=== PATIENT | male | born 1975 | race Two or more races ===

== ENCOUNTER 2025-07-13 08:24 | Inpatient (IN) | payer OTHER ==
[~2025-07-13] VITALS: Ht 182.9 cm; Wt 111.1 kg
[2025-07-13 08:06] LABS: BASO % 0.7 % (0.1-1.2); EOS # 0.41 (0.04-0.54); EOS % 6.9 % (0.7-7.0); LYMPH # 2.29 (1.18-3.74); LYMPH % 38.8 % (19.3-53.1); MEAN PLATELET VOLUME 10.80 fl (9.4-12.4); MONO # 0.48 (0.24-0.82); MONO % 8.1 % (4.7-12.5); NEUT # 2.66 (1.56-6.13); NEUT % 45.2 % (34.0-71.1); RED CELL DISTRIBUTION WIDTH 13.8 % (11.6-14.4)
[2025-07-13 08:07] LABS: URINE APPEARANCE Clear; URINE BILIRRUBIN Negative (NEGATIVE); URINE BLOOD Small; URINE COLOR Yellow; URINE GLUCOSE Negative (NEGATIVE); URINE KETONE Negative (NEGATIVE); URINE LEUKOCYTE Negative; URINE NITRATE Negative; URINE PROTEIN Negative (NEGATIVE); URINE UROBILINOGEN 0.2 E.U./dl
[2025-07-13 08:13] LABS: URINE BACTERIA 11.4 uL (0.0-1933); URINE EPITHELIAL CELLS 1.8 uL (0.0-38.8); URINE RBC 6.7 uL (0.0-20.8); URINE WBC 2.7 uL (0.0-23.2)
[2025-07-13 08:22] VITALS: BP 143/85
[2025-07-13 08:28] LABS: URINE CAST 0.00 uL (0.0-1.40)
[2025-07-13 08:35] LABS: INR 0.97
[2025-07-13 09:04] LABS: ALT/SGPT 46.0 U/L (12-78); AST/SGOT 21.0 U/L (15-37); BILIRUBIN TOTAL 0.81 mg/dL (0.3-1.2); BUN CREA RATIO 11.0 (7.0-25.0); CREATININE SERUM 1.26 mg/dL (0.70-1.30); GFR 60.1; GLOBULINA 2.9 G/DL (2.4-3.5); GLUCOSE FASTING 95.0 mg/dL (65-100); OSMOLALITY SERUM 291.0 MOSM/KG (275-295)
[2025-07-13] MEDS ORDERED: ZESTRIL10 M1 PO (11:38)
[2025-07-16] MEDS ORDERED: BUPIVACAINE HCL/MPF 0.5% 30ML VIAL ONE (07:10)
[2025-07-16] MEDS ORDERED: LIDOCAINE HCL 1%/EPINEPHRINE 20ML VIAL IJ ONE (07:11)
[2025-07-16] MEDS ORDERED: METRONIDAZOLE/SODIUM CHLORIDE 500 MG/100 ML PIGGYBACK IV ONE ×2 (07:11→07:27)
[2025-07-16] MEDS ORDERED: CEFTRIAXONE SODIUM 2,000 MG VIAL ONE ×2 (07:11→07:26)
[2025-07-16] MEDS ORDERED: SUGAMMADEX SODIUM 200 MG/2 ML VIAL IV ONE (11:47)
[2025-07-16] MEDS ORDERED: RINGERS SOLUTION,LACTATED 1,000 ML IV SCH (12:15)
[2025-07-16] MEDS ORDERED: MORPHINE SULFATE 4 MG/ML VIAL IV PRN (12:15)
[2025-07-16] MEDS ORDERED: ONDANSETRON HCL 2 MG/ML VIAL IV PRN (12:15)
[2025-07-16] MEDS ORDERED: ACETAMINOPHEN 500 MG GEL..CAP PO SCH (12:18)
[2025-07-16] MEDS ORDERED: ENALAPRILAT DIHYDRATE 1.25 MG/ML VIAL IV PRN (12:30)
[2025-07-16] MEDS ORDERED: OxyCODONE HCL 5 MG TABLET (ROXICODONE) PO PRN (12:30)
[2025-07-16] MEDS ORDERED: SIMETHICONE 125 MG CAPSULE PO SCH (13:00)
[2025-07-16] MEDS ORDERED: GABAPENTIN 300 MG CAPSULE PO SCH (13:00)
[2025-07-16 14:20] LABS: BASO % 0.2 % (0.1-1.2); EOS # 0.02 (0.04-0.54); EOS % 0.2 % (0.7-7.0); LYMPH # 0.63 (1.18-3.74); LYMPH % 5.1 % (19.3-53.1); MEAN PLATELET VOLUME 11.10 fl (9.4-12.4); MONO # 0.50 (0.24-0.82); MONO % 4.1 % (4.7-12.5); NEUT # 11.03 (1.56-6.13); NEUT % 90.1 % (34.0-71.1); RED CELL DISTRIBUTION WIDTH 13.9 % (11.6-14.4)
[2025-07-16] MEDS ORDERED: ONDANSETRON HCL 2 MG/ML VIAL ONE (14:54)
[2025-07-16 15:39] LABS: BUN CREA RATIO 11.0 (7.0-25.0); CREATININE SERUM 1.39 mg/dL (0.70-1.30); GFR 53.66; GLUCOSE FASTING 131.0 mg/dL (65-100); OSMOLALITY SERUM 288.0 MOSM/KG (275-295)
[2025-07-16] MEDS ORDERED: ACETAMINOPHEN 500 MG GEL..CAP PO ONE (16:21)
[2025-07-16] MEDS ORDERED: GABAPENTIN 300 MG CAPSULE PO ONE (16:21)
[2025-07-16] MEDS ORDERED: POLYETHYLENE GLYCOL 3350 17 GM BLIST.PACK PO SCH (17:00)
[2025-07-16 17:01] VITALS: BP 145/82; O2SAT 97
[2025-07-17] MEDS ORDERED: MORPHINE SULFATE 4 MG/ML VIAL IV PRN ×3 (02:43→05:45)
[2025-07-17] MEDS ORDERED: 0.9 % SODIUM CHLORIDE 500 ML IV ONE (02:45)
[2025-07-17] MEDS ORDERED: MORPHINE SULFATE 4 MG/ML VIAL IV STA (05:42)
[2025-07-17] MEDS ORDERED: MORPHINE SULFATE 2 MG/ML CARTRIDGE IV STA (05:44)
[2025-07-17 06:46] LABS: BASO % 0.2 % (0.1-1.2); EOS # 0.03 (0.04-0.54); EOS % 0.3 % (0.7-7.0); LYMPH # 1.39 (1.18-3.74); LYMPH % 15.2 % (19.3-53.1); MEAN PLATELET VOLUME 11.70 fl (9.4-12.4); MONO # 0.90 (0.24-0.82); MONO % 9.9 % (4.7-12.5); NEUT # 6.76 (1.56-6.13); NEUT % 74.1 % (34.0-71.1); RED CELL DISTRIBUTION WIDTH 13.6 % (11.6-14.4)
[2025-07-17 07:31] LABS: BUN CREA RATIO 7.0 (7.0-25.0); CREATININE SERUM 1.13 mg/dL (0.70-1.30); GFR 68.14; GLUCOSE FASTING 98.0 mg/dL (65-100); OSMOLALITY SERUM 285.0 MOSM/KG (275-295)
[2025-07-17 08:41] VITALS: BP 144/84; O2SAT 100
[2025-07-17] MEDS ORDERED: LISINOPRIL 10 MG TABLET PO SCH (09:00)
[2025-07-17] MEDS ORDERED: LACTOBACILLUS ACIDOPHILUS 1 CAP CAP PO SCH (09:00)
[2025-07-17] MEDS ORDERED: MAGNESIUM CHLORIDE 70 MG TABLET.DR PO SCH (09:00)
[2025-07-17] MEDS ORDERED: PANTOPRAZOLE SODIUM 40 MG/VIAL VIAL IV SCH (09:00)
[2025-07-17 16:00] VITALS: BP 126/79; O2SAT 94
[2025-07-17] MEDS ORDERED: ENOXAPARIN SODIUM 40 MG/0.4 ML SYRINGE SUBCUTANEO SCH (17:00)
[2025-07-18 01:08] VITALS: BP 132/89; O2SAT 100
[2025-07-18 06:18] LABS: BASO % 0.5 % (0.1-1.2); EOS # 0.25 (0.04-0.54); EOS % 3.1 % (0.7-7.0); LYMPH # 1.10 (1.18-3.74); LYMPH % 13.7 % (19.3-53.1); MEAN PLATELET VOLUME 11.60 fl (9.4-12.4); MONO # 0.77 (0.24-0.82); MONO % 9.6 % (4.7-12.5); NEUT # 5.84 (1.56-6.13); NEUT % 72.9 % (34.0-71.1); RED CELL DISTRIBUTION WIDTH 13.4 % (11.6-14.4)
[2025-07-18 06:48] LABS: BUN CREA RATIO 6.0 (7.0-25.0); CREATININE SERUM 0.99 mg/dL (0.70-1.30); GFR 79.38; GLUCOSE FASTING 93.0 mg/dL (65-100); OSMOLALITY SERUM 284.0 MOSM/KG (275-295)
[2025-07-18 08:00] VITALS: BP 137/87; O2SAT 98
[2025-07-18] MEDS ORDERED: MAGNESIUM SULFATE IN WATER 2 GM/50 ML PIGGYBAG IV NR (10:00)
[2025-07-18] MEDS ORDERED: POTASSIUM PHOS,M-BASIC-D-BASIC 15 MM in 0.9 % SODIUM CHLORIDE 250 ML IV ONE (12:00)
[2025-07-18] MEDS ORDERED: NAPH,MB-DB/K PH,MBDB 1 PKT PACKET PO SCH (13:00)
[2025-07-18 14:00] VITALS: BP 142/95; O2SAT 95
[2025-07-18] MEDS ORDERED: POLYETHYLENE GLYCOL 3350 17 GM BLIST.PACK PO SCH (17:00)
[2025-07-19 00:18] VITALS: BP 136/84; O2SAT 96
[2025-07-19] MEDS ORDERED: PIPERACILLIN/TAZOBACTAM SODIUM 3.375 GM in DEXTROSE 5 % IN WATER 100 ML IV SCH (06:00)
[2025-07-19] MEDS ORDERED: VANCOMYCIN HCL 1,000 MG VIAL IV STA (06:10)
[2025-07-19] MEDS ORDERED: VANCOMYCIN HCL 1,000 MG VIAL ONE ×3 (06:13→22:56)
[2025-07-19] MEDS ORDERED: POLYETHYLENE GLYCOL 3350 17 GM BLIST.PACK PO SCH (09:00)
[2025-07-19 10:50] LABS: BASO % 0.5 % (0.1-1.2); EOS # 0.31 (0.04-0.54); EOS % 4.9 % (0.7-7.0); LYMPH # 1.39 (1.18-3.74); LYMPH % 22.2 % (19.3-53.1); MEAN PLATELET VOLUME 11.20 fl (9.4-12.4); MONO # 0.43 (0.24-0.82); MONO % 6.9 % (4.7-12.5); NEUT # 4.10 (1.56-6.13); NEUT % 65.3 % (34.0-71.1); RED CELL DISTRIBUTION WIDTH 13.2 % (11.6-14.4)
[2025-07-19 11:38] LABS: BUN CREA RATIO 6.0 (7.0-25.0); CREATININE SERUM 1.07 mg/dL (0.70-1.30); GFR 72.57; GLUCOSE FASTING 128.0 mg/dL (65-100); OSMOLALITY SERUM 294.0 MOSM/KG (275-295)
[2025-07-19] MEDS ORDERED: VANCOMYCIN HCL 1,000 MG VIAL IV SCH (17:00)
[2025-07-19 18:28] VITALS: BP 120/79; O2SAT 95
[2025-07-20] VITALS: BP 144/86; O2SAT 97
[2025-07-20 06:15] LABS: BASO % 0.7 % (0.1-1.2); EOS # 0.34 (0.04-0.54); EOS % 6.2 % (0.7-7.0); LYMPH # 1.31 (1.18-3.74); LYMPH % 23.9 % (19.3-53.1); MEAN PLATELET VOLUME 11.50 fl (9.4-12.4); MONO # 0.67 (0.24-0.82); NEUT # 3.10 (1.56-6.13); NEUT % 56.8 % (34.0-71.1); RED CELL DISTRIBUTION WIDTH 12.9 % (11.6-14.4)
[2025-07-20 06:38] LABS: MONO % 12.2 % (4.7-12.5)
[2025-07-20 07:19] LABS: ALT/SGPT 31.0 U/L (12-78); AST/SGOT 27.0 U/L (15-37); BILIRUBIN TOTAL 0.81 mg/dL (0.3-1.2); BILIRUBIN,CONJUGATED 0.27 mg/dL (0.0-0.2); BUN CREA RATIO 6.0 (7.0-25.0); CREATININE SERUM 1.04 mg/dL (0.70-1.30); GFR 74.99; GLUCOSE FASTING 88.0 mg/dL (65-100); OSMOLALITY SERUM 284.0 MOSM/KG (275-295)
[2025-07-20 08:00] VITALS: BP 124/80; O2SAT 96
== END 2025-07-20 12:06 | disposition home or self-care (01) | DRG 330 ==
LOC: O/R 07-16 07:00 → SURH 07-16 07:00 → SURG 07-16 07:00 → SURH 07-16 09:00 → SURG 07-16 12:58
PROVIDERS: ADMIT Colon & Rectal Surgery; ATTEND Colon & Rectal Surgery
PROC: 0DBP4ZZ Excision of Rectum, Percutaneous Endoscopic Approach (ICD-10-PCS; 2025-07-16)
PROC: 07BC4ZZ Excision of Pelvis Lymphatic, Percutaneous Endoscopic Approach (ICD-10-PCS; 2025-07-16)
PROC: 07BB4ZZ Excision of Mesenteric Lymphatic, Percutaneous Endoscopic Approach (ICD-10-PCS; 2025-07-16)
PROC: 0DJD8ZZ Inspection of Lower Intestinal Tract, Via Natural or Artificial Opening Endoscopic (ICD-10-PCS; 2025-07-16)
PROC: 8E0 Other Procedures, Physiological Systems and Anatomical Regions, Other Procedures (ICD-10-PCS; 2025-07-16)
PROC: 0DTN4ZZ Resection of Sigmoid Colon, Percutaneous Endoscopic Approach (ICD-10-PCS; principal; 2025-07-16 07:00)
DX: C18.7 Malignant neoplasm of sigmoid colon (principal); C77.5 Secondary and unspecified malignant neoplasm of intrapelvic lymph nodes; T81.49XA Infection following a procedure, other surgical site, initial encounter; L03.311 Cellulitis of abdominal wall; R59.0 Localized enlarged lymph nodes; I10 Essential (primary) hypertension; G47.30 Sleep apnea, unspecified; Y65.8 Other specified misadventures during surgical and medical care